=== PATIENT | male | born 1945 | race Hispanic/Latino ===

== ENCOUNTER 2023-11-19 06:45 | Emergency (ER) | payer MEDICARE ==
[~2023-11-19] VITALS: Ht 157.5 cm; Wt 60.8 kg
[~2023-11-19 06:45] MED LIST: CEFDINIR300 MG PO; METRONIDAZOLE500 MG PO
[2023-11-19 07:29] LABS: BASOPHILS % 0.7 % (0.0-1.0); EOSINOPHILS # (AUTO) 0.3 (0.0-0.4); EOSINOPHILS % 4.1 % (0.0-6.0); HEMOGLOBIN 12.7 g/dL (14.0-18.0); LYMPHOCYTES # (AUTO) 1.7 (1.0-3.2); MEAN CORPUSCULAR HEMOGLOBIN 30.8 pg (28-32); MEAN CORPUSCULAR HGB CONC 32.6 g/dL (31-35); MEAN CORPUSCULAR VOLUME 94.4 fL (81-99); MONOCYTES # (AUTO) 0.4 (0.2-0.8); MONOCYTES % 6.9 % (4.4-11.3); NEUTROPHILS # (AUTO) 3.6 (2.1-6.9); NEUTROPHILS % 59.6 % (38.7-80.0); PLATELET COUNT 314 x10e3/uL (140-360); RED BLOOD COUNT 4.13 x10e6/uL (4.3-5.7); RED CELL DISTRIBUTION WIDTH 13.2 % (11.7-14.4); WHITE BLOOD COUNT 6.07 x10e3/uL (4.8-10.8)
[2023-11-19 07:39] LABS: INR 0.99; PARTIAL THROMBOPLASTIN TIME 29.5 seconds (23.8-35.5); PROTHROMBIN TIME 13.3 seconds (11.9-14.5)
[2023-11-19 08:00] LABS: ALBUMIN 3.6 g/dL (3.5-5.0); ALBUMIN/GLOBULIN RATIO 0.9 (0.8-2.0); ANION GAP 14.8 mmol/L (8-16); BILIRUBIN,TOTAL 0.9 mg/dL (0.2-1.2); CALCIUM 9.2 mg/dL (8.4-10.2); CREATININE, SERUM 0.87 mg/dL (0.72-1.25); MAGNESIUM 1.7 MG/DL (1.3-2.1); POTASSIUM 3.8 mmol/L (3.5-5.1); TOTAL PROTEIN 7.6 g/dL (6.5-8.1)
[2023-11-19 08:05] LABS: TROPONIN I 0.003 ng/mL (0-0.300)
[2023-11-19 08:12] VITALS: BP 148/61; PULSE 60; RESP 15; TEMP 98; O2SAT 98
[2023-11-19] MEDS ORDERED: PANTOPRAZOLE SO40 MG PO (08:13)
[2023-11-19] MEDS ORDERED: ONDANSETRON ODT4 MG PO (08:13)
[2023-11-19] MEDS ORDERED: DICYCLOMINE HCL20 MG PO (08:13)
[2023-11-19 10:12] LABS: EOSINOPHILS % (MANUAL) 3 % (0-7); LYMPHOCYTES % (MANUAL) 17 % (19-48); MONOCYTES % (MANUAL) 5 % (3.4-9.0); NEUTROPHILS % (MANUAL) 74 % (40-74); REACTIVE LYMPHOCYTES 1
[2023-11-19 10:13] LABS: PLATELET ESTIMATE ADEQUATE; PLATELET MORPHOLOGY COMMENT NORMAL; RBC MORPHOLOGY COMMENT NORMAL
== END 2023-11-19 08:29 | disposition home or self-care (01) ==
LOC: ER 06:49
DX: K80.20 Calculus of gallbladder without cholecystitis without obstruction (principal); E11.65 Type 2 diabetes mellitus with hyperglycemia
CPT/HCPCS: 36415; 80053; 82550; 83690; 83735; 84484; 85025; 85610; 85730; 99283